=== PATIENT | female | born 1965 | race African-American/Black ===

== ENCOUNTER 2025-02-13 16:07 | Emergency (ER) | payer BC ==
[~2025-02-13] VITALS: Ht 157.5 cm; Wt 67.7 kg
[2025-02-13 16:08] VITALS: BP 134/86; PULSE 103; RESP 18; TEMP 98.4; O2SAT 98
[2025-02-13] MEDS: KETOROLAC TROMETHAMINE 30 MG/ML VIAL IM ONE (17:59)
[2025-02-13] MEDS: AMOX TR/POT CLAV 875 MG/125 MG TABLET PO ONE (18:01)
[2025-02-13] MEDS: ACETAMINOPHEN 500 MG TABLET PO ONE (18:01)
[2025-02-13] MEDS ORDERED: AMOX-457 PO (18:05)
[2025-02-13] MEDS ORDERED: OXYC5 PO (18:26)
== END 2025-02-13 19:24 | disposition home or self-care (01) ==
LOC: EMS 16:07
DX: K04.7 Periapical abscess without sinus (principal); F17.210 Nicotine dependence, cigarettes, uncomplicated; Z98.890 Other specified postprocedural states; Z86.73 Personal history of transient ischemic attack (TIA), and cerebral infarction without residual deficits
CPT/HCPCS: 99283; 96372; J1885